=== PATIENT | female | born 2000 | race Caucasian/White ===

== ENCOUNTER 2024-12-27 09:17 | Emergency (ER) | payer SELFPAY ==
[2024-12-27] MEDS ORDERED: Bacitracin 1 PK ONE (10:39)
[2024-12-27] MEDS ORDERED: Boostrix 0.5 ML (Tdap) VIAL (>/=7 yrs of age) ONE ×2 (10:40→11:12)
== END 2024-12-27 10:54 | disposition home or self-care (01) ==
LOC: NAV ERS 09:17
DX: S61.211A Laceration without foreign body of left index finger without damage to nail, initial encounter (principal); Z23 Encounter for immunization; W26.8XXA Contact with other sharp object(s), not elsewhere classified, initial encounter; Y92.000 Kitchen of unspecified non-institutional (private) residence as the place of occurrence of the external cause
CPT/HCPCS: 12001; 90471; 90715